=== PATIENT | female | born 1995 | race American Indian/Alaskan Native ===

== ENCOUNTER 2016-05-14 20:29 | Emergency (ER) | payer SELFPAY ==
[2016-05-14 20:37] VITALS: BP 132/95
[2016-05-14 21:50] LABS: Basophils % (Auto) 0.3 % (0.0-1.8); Eosinophils % (Auto) 3.2 % (0.0-4.3); Hematocrit 34.2 % (30.3-42.9); Hemoglobin 10.8 gm/dl (10.1-14.3); Mean Corpuscular HGB Conc 32 % (30-34); Mean Corpuscular Volume 77 fl (79-97); Platelet Count 240 K/mm3 (140-440); Red Blood Count 4.46 M/mm3 (3.65-5.03); Red Cell Distribution Width 14.9 % (13.2-15.2); White Blood Count 3.6 K/mm3 (4.5-11.0)
[2016-05-14 21:51] LABS: Anion Gap 14 mmol/L; BUN/Creatinine Ratio 6.66; Blood Urea Nitrogen 4 mg/dL (7-17); Calcium 8.3 mg/dL (8.4-10.2); Carbon Dioxide 26 mmol/L (22-30); Glucose 90 mg/dL (65-100); Potassium 3.4 mmol/L (3.6-5.0); Sodium 140 mmol/L (137-145)
[2016-05-14 21:54] LABS: Creatine Kinase 135 units/L (30-135)
[2016-05-14 21:55] LABS: Mean Corpuscular Hemoglobin 24 pg (28-32)
[2016-05-14 22:15] LABS: Creatine Kinase MB < 1.0 ng/mL (0.0-4.0)
--- NOTE | 2016-05-16 21:20 | ED Elopement Review ---
ED Pt Elopement review - Results review Lab results: Laboratory Tests 05/14/16 05/14/16 05/14/16 21:18 21:18 21:18 WBC 3.6 L RBC 4.46 Hgb 10.8 Hct 34.2 MCV 77 L MCH 24 L MCHC 32 RDW 14.9 Plt Count 240 Lymph % (Auto) 34.9 [place] % (Auto) 12.9 H Eos % (Auto) 3.2 Baso % (Auto) 0.3 Lymph # 1.3 [place] # 0.5 Eos # 0.1 Baso # 0.0 Seg Neutrophils % 48.7 Seg Neutrophils # 1.8 Sodium 140 Potassium 3.4 L Chloride 103.0 Carbon Dioxide 26 Anion Gap 14 BUN 4 L Creatinine 0.6 L Estimated GFR > 60 BUN/Creatinine Ratio 6.66 Glucose 90 Calcium 8.3 L Total Creatine Kinase 135 CK-MB (CK-2) < 1.0 CK-MB (CK-2) Rel Index 0.7 Troponin T < 0.010 - Call Back decision Pt Call Back Decision: No action required
== END 2016-05-14 21:30 | disposition left against medical advice (07) ==
LOC: ED 20:29
DX: M54.2 Cervicalgia (principal); R07.9 Chest pain, unspecified; R05 Cough; R20.0 Anesthesia of skin; R50.9 Fever, unspecified; Z53.21 Procedure and treatment not carried out due to patient leaving prior to being seen by health care provider
CPT/HCPCS: 36415; 80048; 82550; 82553; 84484; 85025; 93005; 93010